=== PATIENT | male | born 1995 ===

== ENCOUNTER 2018-06-03 00:52 | Emergency (ER) | payer SELFPAY ==
--- NOTE | 2018-06-03 01:18 | Emergency Department Record ---
History of Present Illness - General Chief complaint: Burn/Smoke Inhalation Stated complaint: RIGHT FOOT BURN Time Seen by Provider: 06/03/18 01:04 Source: Patient Mode of Arrival: Ambulatory Limitations: No limitations - History of Present Illness Initial comments: 23 yo male presents with a burn to the top of his foot. He was using a power wash that uses hot water. He was wearing steel toe shoes. The water seeped into his work boot. He has a ruptured blister with a partial thickness burn to the right foot. Pain is tolerable. No loss of ROM. Tetanus is unknown when the last was given, but not recent. MD Complaint: Burn Onset/Timin -: Hour(s) Type of Exposure: Hot liquid Smoke Inhalation: None Location: Other Severity: Moderate, Severe Associated Symptoms: Denies other symptoms Treatment Prior to Arrival: Other Treatment Prior to Arrival Comment:: TOPICAL BURN CREAM - Related Data Previous Rx's Medication Instructions Recorded Naproxen [Naprosyn] 500 mg PO Q12H #20 tab. 06/03/18 Silver Sulfadiazine [Ssd] 85 gm TP DAILY #1 cream.gm. 06/03/18 Allergies Allergy/AdvReac Type Severity Reaction Status Date / Time No Known Drug Allergies Allergy Verified 06/03/18 01:05 Travel Screening - Travel/Exposure Within Last 30 Days Have you traveled within the last 30 days?: No - Travel Symptoms Symptom Screening: None Review of Systems Constitutional: Denies: Chills, Fever, Malaise, Weakness Eyes: Denies: Eye discharge ENT: Denies: Congestion, Throat pain Respiratory: Denies: Cough Cardiovascular: Denies: Chest pain, Palpitations, Syncope Endocrine: Denies: Fatigue Gastrointestinal: Denies: Abdominal pain, Diarrhea, Nausea, Vomiting Genitourinary: Denies: Dysuria, Frequency, Urgency Musculoskeletal: Reports: Myalgia. Denies: Arthralgia, Back pain, Joint swelling Skin: Reports: Change in color Neurological: Denies: Confusion Psychiatric: Denies: Anxiety Hematological/Lymphatic: Denies: Easy bleeding, Easy bruising, Swollen glands Past Medical History - SOCIAL HISTORY Smoking Status: Never smoker Alcohol Use: None Drug Use: None - RESPIRATORY Hx Respiratory Disorders: No - CARDIOVASCULAR Hx Cardio Disorders: No - NEURO Hx Neuro Disorders: No - GI Hx GI Disorders: No - Hx Genitourinary Disorders: No - ENDOCRINE Hx Endocrine Disorders: No - MUSCULOSKELETAL Hx Musculoskeletal Disorders: No - PSYCH Hx Psych Problems: No - HEMATOLOGY/ONCOLOGY Hx Hematology/Oncology Disorders: No Family Medical History Any Significant Family History?: Yes Hx Diabetes: Grandparents Physical Exam - General General Appearance: Alert, Oriented x3, Cooperative, No acute distress Limitations: No limitations - Head Head exam: Atraumatic, Normocephalic, Normal inspection - Eye Eye exam: Normal appearance, PERRL. negative: Conjunctival injection, Scleral icterus - ENT ENT exam: Normal exam, Mucous membranes moist Ear exam: Normal external inspection Nasal Exam: Normal inspection Mouth exam: Normal external inspection - Neck Neck exam: Normal inspection, Full ROM. negative: Tenderness - Cardiovascular Cardiovascular Exam: Regular rate, Normal rhythm, Normal heart sounds Peripheral Pulses: 2+: Dorsalis Pedis (R) - Rectal Rectal exam: Deferred - exam: Deferred - Extremities Extremities exam: Full ROM, Normal capillary refill, Tenderness. negative: Normal inspection Image of Feet: 1 - triangular shaped area of burn, 6cm x 4cm x 6cm, ruptured blister, CR intact on pink exposed tissue. Full ROM, no foot swelling - Neurological Neurological exam: Alert, Oriented X3 - Psychiatric Psychiatric exam: Normal affect, Normal mood - Skin Skin exam: Other (burn, partial thickness) Course Vital Signs 06/03/18 00:57 Temperature 97.9 F Pulse Rate 90 Respiratory 18 Rate Blood Pressure 131/92 Pulse Ox 98 - Reevaluation(s) Reevaluation #1: The partial thickness burn was irrigated with NS The loose tissue was sharply dissected and debrided silvadene ointment and non stick dressing placed He has follow up tomorrow he states at [facility] Tetanus updated 06/03/18 01:19 Disposition Disposition: Discharge Clinical Impression: Partial thickness burn Disposition: Home, Self-Care Condition: (1) Good Instructions: Second Degree Burn (ED) Additional Instructions: Change the dressing daily Follow up tomorrow with your [facility] provider Use the dressings and shoe. Do not use a regular shoe or boot Keep the foot elevated to avoid swelling Be seen if you have fever, pus, redness, uncontrolled pain Prescriptions: Naproxen [Naprosyn] 500 mg PO Q12H #20 tab. Silver Sulfadiazine [Ssd] 85 gm TP DAILY #1 cream.gm. Forms: Patient Portal Access Time of Disposition: : Quality - Quality Measures Quality Measures: N/A - Blood Pressure Screening Does Patient Have Any of the Following: No Blood Pressure Classification: Hypertensive Reading Systolic Measurement: 131 Diastolic Measurement: 92 Screening for High Blood Pressure: < Pre-Hypertensive BP, F/U Documented > [ [id number]] Pre-Hypertensive Follow-up Interventions: Referral to alternative/primary care provider.
[2018-06-03] MEDS: SILVER SULFADIAZINE 25 GM CREAM TOP ONE (01:22)
[2018-06-03] MEDS: Diph,Pert(Acell),Tet Vac 0.5 ML SYR IM ONE (01:23)
== END 2018-06-03 01:46 | disposition home or self-care (01) ==
LOC: ER 00:52
DX: T25.221A Burn of second degree of right foot, initial encounter (principal); X17.XXXA Contact with hot engines, machinery and tools, initial encounter; Y93.H3 Activity, building and construction; Y92.63 Factory as the place of occurrence of the external cause; Y99.0 Civilian activity done for income or pay
CPT/HCPCS: 16020; 90715; 96372; 99283